=== PATIENT | female | born 1950 | race Caucasian/White ===

== ENCOUNTER 2017-02-26 23:10 | Inpatient (IN) | payer OTHER, MEDICARE ==
[~2017-02-26] VITALS: Ht 160 cm; Wt 112.0 kg
[~2017-02-26 23:10] MED LIST: ACET325 PO; BACT2OIN TOP; CIPR500T2 PO; CLON.1 PO; DOXA1 PO; DUONI INH; Docusate Sod/Senna PO; ENOX40P SQ; FLUC200T63 PO; HYDR-3580 PO; LANTUSP SQ; METR-1 PO; Mineral Oil PO; NIFE1TAB86 PO; NRSS SQ; POLY17S PO; PROM25R PR; PROZ20CA11 PO; RANI150 PO; ZOLP1TAB32 PO
[2017-02-26 23:12] VITALS: BP 210/84; PULSE 84; RESP 16; TEMP 98.3; O2SAT 97
[2017-02-26 23:32] VITALS: BP 207/87
[2017-02-26] MEDS ORDERED: DULO1CAP PO (23:56)
[2017-02-26] MEDS ORDERED: VITACAP7 PO (23:56)
[2017-02-26] MEDS ORDERED: FERR200T PO (23:56)
[2017-02-26] MEDS ORDERED: CHOL1CAP14 PO (23:56)
[2017-02-26] MEDS ORDERED: LISI-515 PO (23:56)
[2017-02-26] MEDS ORDERED: FURO20TA PO (23:56)
[2017-02-26] MEDS ORDERED: ATOR40TA16 PO (23:56)
[2017-02-26] MEDS ORDERED: MECL-62 PO (23:56)
[2017-02-26] MEDS ORDERED: SODI650T PO (23:56)
[2017-02-26] MEDS ORDERED: NOVOLOGP2 SQ (23:56)
[2017-02-27] VITALS (15 sets, daily range): BP systolic 127–188; BP diastolic 61–80; PULSE 66–80; RESP 13–25; TEMP 97.8–98.1; O2SAT 94–100
[2017-02-27] MEDS ORDERED: ALPRAZolam 0.25 MG TAB PO PRN (00:30)
[2017-02-27] MEDS ORDERED: TEMAZEPAM 15 MG CAP PO PRN (00:30)
[2017-02-27] MEDS ORDERED: ACETAMINOPHEN/HYDROcodone 325 MG/7.5 MG TAB PO PRN (00:30)
[2017-02-27] MEDS ORDERED: MORPHINE SULFATE 4 MG/ML INJ IV PRN (00:30)
[2017-02-27] MEDS ORDERED: ONDANSETRON HCL 4 MG/2 ML VIAL IV PRN (00:30)
[2017-02-27] MEDS ORDERED: SODIUM CHLORIDE 0.9% FLUSH 10 ML FLUSH IVF PRN (00:30)
[2017-02-27] MEDS ORDERED: NITROGLYCERIN 0.4 MG SL 25 TABS/BTL SL PRN (00:30)
[2017-02-27] MEDS ORDERED: LORazepam 2 MG/ML VIAL IV PUSH ONE (00:30)
[2017-02-27] MEDS ORDERED: ONDANSETRON HCL 4 MG/2 ML VIAL IVP ONE (00:30)
--- NOTE | 2017-02-27 00:51 | RADRPT ---
EXAM DATE/TIME: 02/27/2017 00:44 [facility] COMPARISON: CT BRAIN W/O CONTRAST, April 25, 2014, 19:30. INDICATIONS : Dizziness. RADIATION DOSE: 40.38 CTDIvol (mGy) MEDICAL HISTORY : Cardiovascular disease. Hypertension. Diabetes mellitus type 2.CVA. SURGICAL HISTORY : Appendectomy. ENCOUNTER: Initial ACUITY: 1 day PAIN SCALE: 0/10 LOCATION: cranial TECHNIQUE: Multiple contiguous axial images were obtained of the head. Using automated exposure control and adj ustment of the mA and/or kV according to patient size, radiation dose was kept as low as reasonably a chievable to obtain optimal diagnostic quality images. FINDINGS: There is old encephalomalacia of the left occipital lobe and no change, however there are 2 smal l areas of hemorrhage within the head of the caudate on the left side the larger one measures almost 7 mm in size not present previously. There is no mass effect. The rest of the examination has not sig nificantly changed. CONCLUSION: Two small areas of hemorrhage within the left head of the caudate not present previously without any significant mass effect. Ru Carpenter MD on February 27, 2017 at 0:47 Board Certified Radiologist. This report was verified electronically.
[2017-02-27 01:20] LABS: AUTOMATED NEUTROPHIL # 5.2 TH/MM3 (1.8-7.7); BASOPHIL # 0.1 TH/MM3 (0-0.2); BASOPHIL % 1.1 % (0.0-2.0); EOSINOPHIL # 0.1 TH/MM3 (0-0.4); EOSINOPHIL % 1.1 % (0.0-4.0); HEMATOCRIT 32.6 % (35.0-46.0); HEMO FLAGS DIFF FINAL; LYMPHOCYTE # 2.2 TH/MM3 (1.0-4.8); MEAN CELL VOLUME 91.9 FL (80.0-100.0); MEAN CORPUSCULAR HEMOGLOBIN 30.3 PG (27.0-34.0); NEUT % 62.8 % (16.0-70.0); PLATELET COUNT 182 TH/MM3 (150-450); RED BLOOD COUNT 3.54 MIL/MM3 (4.00-5.30); RED CELL DISTRIBUTION WIDTH 12.9 % (11.6-17.2); WHITE BLOOD COUNT 8.2 TH/MM3 (4.0-11.0)
[2017-02-27 01:32] LABS: BICARBONATE 24.3 MEQ/L (21.0-32.0); MAGNESIUM 1.7 MG/DL (1.5-2.5); POTASSIUM 4.5 MEQ/L (3.5-5.1)
[2017-02-27 01:34] LABS: BACTERIA, URINE RARE /hpf; BLOOD, URINE TRACE (NEG); GLUCOSE,URINE TRACE mg/dL (NEG); HYALINE CAST, URINE 1 /lpf (RARE); KETONE, URINE NEG (NEG); MUCUS URINE FEW /lpf (OCC); NITRITE,URINE NEG (NEG); RENAL EPITHELIAL CELLS <1 /hpf; SQUAMOUS EPITHELIAL CELL URINE 2 /hpf (0-5); URINE COLOR YELLOW (YELLW/STRAW)
--- NOTE | 2017-02-27 01:34 | PD ---
HPI Chief Complaint: Dizziness Time Seen by Provider: 00:02 Travel History International Travel<30 days: No Contact w/Intl Traveler<30days: No Traveled to known affect area: No History of Present Illness HPI The patient 66 years old. For about 10 days she has had vertiginous like dizziness. It was first noticed while she was watching TV. It's worse when she rotates her head from side to side. At baseline it is mild however with movement of the head and become severe. She denies vomiting however has had nausea. She was prescribed meclizine which was not very helpful. She denies otalgia and tenderness. She's had no headache. No fever. No neck pain. PFSH Past Medical History Cancer: No Cardiovascular Problems: Yes Cerebrovascular Accident: Yes (RIGHT SIDED WEAKNESS) Diabetes: Yes Patient Takes Glucophage: No Endocrine: Yes Fibromyalgia: Yes Gastrointestinal Disorders: Yes Glaucoma: No Genitourinary: No Hepatitis: No Hiatal Hernia: No Hypertension: Yes Immune Disorder: No Musculoskeletal: Yes (MULTIPLE SCLEROSIS) Neurologic: Yes (NEUROPATHY) Psychiatric: No Reproductive: No Respiratory: No Thyroid Disease: No ?: Not Past Surgical History Appendectomy: Yes Eye Surgery: Yes (CATARACT SURGERY/ LASER SURGERY) Oral Surgery: Yes (TEETH EXTRACTED) Pacemaker: No Other Surgery: Yes Social History Alcohol Use: No Tobacco Use: No Substance Use: No Allergies-Medications (Allergen,Severity, Reaction): Coded Allergies: Bee Sting (Verified Allergy, Severe, SOB, EDEMA, 02/26/17) Glucophage (Verified Allergy, Mild, 02/26/17) MAKES PATIENT SICK TO STOMACH Uncoded Allergies: HONEY (Allergy, Severe, SOB, 12/06/12) Reported Meds & Prescriptions Reported Meds & Active Scripts Active Reported Sodium Bicarbonate 650 Mg Tab 650 Mg PO BIDPC Lisinopril 20 Mg Tab 20 Mg PO DAILY Novolog Inj (Insulin Aspart) 1,000 Unit/10 Ml Vial 40 Units SQ TID Feosol (Ferrous Sulfate) 200 Mg Tab 27 Mg PO DAILY Furosemide 20 Mg Tab 20 Mg PO DAILY Atorvastatin (Atorvastatin Calcium) 40 Mg Tab 40 Mg PO HS Duloxetine DR (Duloxetine HCl) 20 Mg Capdr 20 Mg PO DAILY D3 Maximum Strength (Cholecalciferol) 5,000 Unit Cap 5,000 Units PO DAILY B Complex (B-Complex Vitamins) 1 Cap 1 Cap PO DAILY Meclizine (Meclizine HCl) 25 Mg Tab 25 Mg PO BID PRN Review of Systems Except as stated in HPI: all other systems reviewed are Neg Physical Exam Narrative GENERAL: 66-year-old female pleasant well-nourished well-developed no acute distress SKIN: Focused skin assessment warm/dry. HEAD: Atraumatic. Normocephalic. EYES: Pupils equal and round. No scleral icterus. No injection or drainage. ENT: No nasal bleeding or discharge. Mucous membranes pink and moist. NECK: Trachea midline. No JVD. CARDIOVASCULAR: Regular rate and rhythm. No murmur appreciated. RESPIRATORY: No accessory muscle use. Clear to auscultation. Breath sounds equal bilaterally. GASTROINTESTINAL: Abdomen soft, non-tender, nondistended. Hepatic and splenic margins not palpable. MUSCULOSKELETAL: No obvious deformities. No clubbing. No cyanosis. No edema. NEUROLOGICAL: Awake and alert. No obvious cranial nerve deficits. Motor grossly within normal limits. Normal speech. Cerebellar function normal. PSYCHIATRIC: Appropriate mood and affect; insight and judgment normal. Data Data Last Documented VS Vital Signs Date Time Temp Pulse Resp B/P Pulse Ox O2 Delivery O2 Flow Rate FiO2 02/27/17 02:29 77 18 166/78 99 Room Air 02/26/17 23:12 98.3 Vital signs reviewed Orders Electrocardiogram (02/27/17 00:18) Basic Metabolic Panel (Bmp) (02/27/17 00:18) Complete Blood Count With Diff (02/27/17 00:18) Magnesium (Mg) (02/27/17 00:18) Ua Includes Microscopic (02/27/17 00:18) Ct Brain W/O Iv Contrast(Rout) (02/27/17 00:18) Ecg Monitoring (02/27/17 00:18) Iv Access Insert/Monitor (02/27/17 00:18) Oximetry (02/27/17 00:18) Ondansetron Inj (Zofran Inj) (02/27/17 00:30) Sodium Chloride 0.9% Flush (Ns Flush) (02/27/17 00:30) Lorazepam Inj (Ativan Inj) (02/27/17 00:30) Resp Oxygen Nasal Cannula (02/27/17 ) Electrocardiogram (02/27/17 00:20) Electrocardiogram (02/27/17 03:20) Acetamin-Hydrocod 325-7.5 Mg ([place] 7.5 (02/27/17 00:30) Morphine Inj (Morphine Inj) (02/27/17 00:30) Ondansetron Inj (Zofran Inj) (02/27/17 00:30) Nitroglycerin Sl (Nitrostat Sl) (02/27/17 00:30) Aspirin (Aspirin) (02/27/17 09:00) Temazepam (Restoril) (02/27/17 00:30) Alprazolam (Xanax) (02/27/17 00:30) Prothrombin Time / Inr (Pt) (02/27/17 01:33) Act Partial Throm Time (Ptt) (02/27/17 01:33) Nicardipine Inj (Cardene Inj) (02/27/17 02:15) Admit Order (Ed Use Only) (02/27/17 02:41) Labs Laboratory Tests Test 02/27/17 02/27/17 02/27/17 00:25 01:05 01:36 White Blood Count 8.2 TH/MM3 Red Blood Count 3.54 MIL/MM3 Hemoglobin 10.7 GM/DL Hematocrit 32.6 % Mean Corpuscular Volume 91.9 FL Mean Corpuscular Hemoglobin 30.3 PG Mean Corpuscular Hemoglobin 33.0 % Concent Red Cell Distribution Width 12.9 % Platelet Count 182 TH/MM3 Mean Platelet Volume 9.0 FL Neutrophils (%) (Auto) 62.8 % Lymphocytes (%) (Auto) 27.0 % Monocytes (%) (Auto) 8.0 % Eosinophils (%) (Auto) 1.1 % Basophils (%) (Auto) 1.1 % Neutrophils # (Auto) 5.2 TH/MM3 Lymphocytes # (Auto) 2.2 TH/MM3 Monocytes # (Auto) 0.7 TH/MM3 Eosinophils # (Auto) 0.1 TH/MM3 Basophils # (Auto) 0.1 TH/MM3 CBC Comment DIFF FINAL Differential Comment Sodium Level 145 MEQ/L Potassium Level 4.5 MEQ/L Chloride Level 111 MEQ/L Carbon Dioxide Level 24.3 MEQ/L Anion Gap 10 MEQ/L Blood Urea Nitrogen 49 MG/DL Creatinine 3.02 MG/DL Estimat Glomerular Filtration 16 ML/MIN Rate Random Glucose 68 MG/DL Calcium Level 8.8 MG/DL Magnesium Level 1.7 MG/DL Urine Color YELLOW Urine Turbidity CLEAR Urine pH 6.0 Urine Specific [place] 1.011 Urine Protein 300 mg/dL Urine Glucose (UA) TRACE mg/dL Urine Ketones NEG mg/dL Urine Occult Blood TRACE Urine Nitrite NEG Urine Bilirubin NEG Urine Urobilinogen LESS THAN 2.0 MG/DL Urine Leukocyte Esterase TRACE Urine RBC 2 /hpf Urine WBC 9 /hpf Urine Squamous Epithelial 2 /hpf Cells Urine Renal Epithelial Cells <1 /hpf Urine Bacteria RARE /hpf Urine Hyaline Casts 1 /lpf Urine Mucus FEW /lpf Microscopic Urinalysis Comment Prothrombin Time 10.2 SEC Prothromb Time International 0.9 RATIO Ratio Activated Partial 27.5 SEC Thromboplast Time MDM Medical Decision Making Medical Screen Exam Complete: Yes Emergency Medical Condition: Yes Medical Record Reviewed: Yes Differential Diagnosis Central vertigo, peripheral vertigo, intracranial bleed, stroke, electrolyte imbalance Narrative Course CBC & BMP Diagram 02/27/17 00:25 Urinalysis could reflect a UTI EKG reveals a sinus rhythm at a rate of [address] elevation or depression Last [address] 02/27/17 0018 Signed Impressions: Service Date/Time: Monday, February 27, 2017 00:44 - CONCLUSION: Two small areas of hemorrhage within the left head of the caudate not present previously without any significant mass effect. Ru Carpenter MD As noted the patient has no appreciable neurologic deficit. She'll be admitted for blood pressure control with the goal of 120 to 150 systolic/diastolic - case discussed with Dr. Mckeon of neurosurgery. Case d/w Dr Judge. Cardene gtt started. Pt reports resolution of symptoms after ativan. Diagnosis Primary Impression: ICH (intracerebral hemorrhage) Qualified Code: I61.9 - Left-sided nontraumatic intracerebral hemorrhage, unspecified cerebral location Additional Impression: Dizziness Admitting Information Admitting Physician Requests: Admit Kemar Head MD Feb 27, 2017 01:34
[2017-02-27 02:20] LABS: APTT (PATIENT) 27.5 SEC (24.3-30.1); INTERNATIONAL NORMALIZED RATIO 0.9 RATIO; PROTHROMBIN TIME - PATIENT 10.2 SEC (9.8-11.6)
--- NOTE | 2017-02-27 02:32 | PD.CONS ---
History of Present Illness Service Neurosurgery Consult Requested By Dr Head Reason for Consult Basal ganglia ICH Primary Care Physician Unknown Diagnoses: History of Present Illness 66-year-old female states that approximately 10 days ago she developed dizziness, primarily with movement of her head, without definite vertigo. She denies any headaches, fevers, nausea, vomiting. No blurred vision or diplopia. No pain weakness or numbness in the extremities. She has had some increased difficulty ambulating, but usually feels a little off balance. No complaint of neck or low back pain. No skin lesions or rash. Her daughter finally brought her to the emergency room today on 02/27/[address] scan of the head has revealed a small area of hemorrhage in the left basal ganglia. Review of her emergency room reports indicates a systolic blood pressure of 210 upon arrival in the emergency room. Review of Systems Constitutional: DENIES: Fatigue, Fever Eyes: DENIES: Blurred vision, Diplopia Ears, nose, mouth, throat: DENIES: Tinnitus, Hearing loss, Vertigo, Ear Pain Respiratory: DENIES: Cough, Sputum production Cardiovascular: DENIES: Chest pain, Palpitations, Lower Extremity Edema Gastrointestinal: DENIES: Abdominal pain, Nausea, Vomiting Genitourinary: DENIES: Urinary frequency Musculoskeletal: DENIES: Joint pain, Muscle aches, Back pain, Neck pain Integumentary: DENIES: Rash Hematologic/lymphatic: DENIES: Bruising Neurologic: COMPLAINS OF: Abnormal gait, Poor Balance, DENIES: Headache, Localized weakness, Paresthesias, Speech Problems Psychiatric: DENIES: Anxiety, Confusion Past Family Social History Allergies: Coded Allergies: Bee Sting (Verified Allergy, Severe, SOB, EDEMA, 02/26/17) Glucophage (Verified Allergy, Mild, 02/26/17) MAKES PATIENT SICK TO STOMACH Uncoded Allergies: HONEY (Allergy, Severe, SOB, 12/06/12) Past Medical History Diabetes Hypertension Stage IV chronic kidney disease History of CVA Past Surgical History Appendectomy Reported Medications Reported Meds & Active Scripts Active Reported Sodium Bicarbonate 650 Mg Tab 650 Mg PO BIDPC Lisinopril 20 Mg Tab 20 Mg PO DAILY Novolog Inj (Insulin Aspart) 1,000 Unit/10 Ml Vial 40 Units SQ TID Feosol (Ferrous Sulfate) 200 Mg Tab 27 Mg PO DAILY Furosemide 20 Mg Tab 20 Mg PO DAILY Atorvastatin (Atorvastatin Calcium) 40 Mg Tab 40 Mg PO HS Duloxetine DR (Duloxetine HCl) 20 Mg Capdr 20 Mg PO DAILY D3 Maximum Strength (Cholecalciferol) 5,000 Unit Cap 5,000 Units PO DAILY B Complex (B-Complex Vitamins) 1 Cap 1 Cap PO DAILY Meclizine (Meclizine HCl) 25 Mg Tab 25 Mg PO BID PRN Family History Positive for diabetes in her mother Social History Has not smoked cigarettes for approximately 30 years. No significant alcohol use. Lives alone Physical Exam Vital Signs Vital Signs Date Time Temp Pulse Resp B/P Pulse Ox O2 Delivery O2 Flow Rate FiO2 02/27/17 01:50 76 18 169/69 96 Room Air 02/27/17 01:27 79 18 188/78 96 Room Air 02/27/17 00:33 94 02/26/17 23:32 207/87 02/26/17 23:12 98.3 84 16 210/84 97 Room Air Physical Exam General: Pleasant moderately obese lady in no apparent distress Respirations: Clear to auscultation Cardiac: Regular without murmur HEENT: No facial edema or ecchymosis. Oropharynx clear. Sclerae are clear and nonicteric Neck: No nuchal rigidity. Nontender. Normal range of motion Skin: No skin lesions or rash Extremities: Mild distal lower extremity edema without cyanosis. Posterior tibial pulses 2+ bilateral. No long bone or joint deformity or pain with joint range of motion in the upper and lower extremities Neurologic: Awake and alert Oriented X 3 Speech is clear Conversant and appropriate Follow simple commands well Answers questions appropriately Reasonable judgment and insight Recent and remote memory are intact No evidence of anxiety or depression Pupils are equal and reactive to accommodation. Extra-ocular movements, visual bueno to confrontation, facial sensorimotor, tongue, palate, sternocleidomastoid testing, hearing to finger rub testing, and bilateral shoulder shrug are all intact. Sensation is intact to light touch in all extremities Strength normal major flexion and extension groups all extremities Khari's absent bilaterally No ankle clonus Plantar responses absent bilateral Fine motor movements intact upper extremities Laboratory Laboratory Tests Test 02/27/17 02/27/17 00:25 01:05 White Blood Count 8.2 Red Blood Count 3.54 Hemoglobin 10.7 Hematocrit 32.6 Mean Corpuscular Volume 91.9 Mean Corpuscular Hemoglobin 30.3 Mean Corpuscular Hemoglobin 33.0 Concent Red Cell Distribution Width 12.9 Platelet Count 182 Mean Platelet Volume 9.0 Neutrophils (%) (Auto) 62.8 Lymphocytes (%) (Auto) 27.0 Monocytes (%) (Auto) 8.0 Eosinophils (%) (Auto) 1.1 Basophils (%) (Auto) 1.1 Neutrophils # (Auto) 5.2 Lymphocytes # (Auto) 2.2 Monocytes # (Auto) 0.7 Eosinophils # (Auto) 0.1 Basophils # (Auto) 0.1 CBC Comment DIFF FINAL Differential Comment Sodium Level 145 Potassium Level 4.5 Chloride Level 111 Carbon Dioxide Level 24.3 Anion Gap 10 Blood Urea Nitrogen 49 Creatinine 3.02 Estimat Glomerular Filtration 16 Rate Random Glucose 68 Calcium Level 8.8 Magnesium Level 1.7 Urine Color YELLOW Urine Turbidity CLEAR Urine pH 6.0 Urine Specific [place] 1.011 Urine Protein 300 Urine Glucose (UA) TRACE Urine Ketones NEG Urine Occult Blood TRACE Urine Nitrite NEG Urine Bilirubin NEG Urine Urobilinogen LESS THAN 2.0 Urine Leukocyte Esterase TRACE Urine RBC 2 Urine WBC 9 Urine Squamous Epithelial 2 Cells Urine Renal Epithelial Cells <1 Urine Bacteria RARE Urine Hyaline Casts 1 Urine Mucus FEW Microscopic Urinalysis Comment Result Diagram: 02/27/17 0025 02/27/17 0025 Imaging DT Head images reviewed by the undersigned. Head CT 02/27/17 0018 Signed Impressions: Service Date/Time: Monday, February 27, 2017 00:44 - CONCLUSION: Two small areas of hemorrhage within the left head of the caudate not present previously without any significant mass effect. Ru Carpenter MD Assessment and Plan Assessment and Plan Impression: 1. Two small probable subacute left caudate ICH. 2.htN Plan: No NS intervention anticipated at this time HTN control for SBP 120 - 150 range. Cardene drip initiated in the ED FU CT Head in approximately 48 Hr and adjust BP parameters None chemical DVT prophylaxis May mobilize out of bed and advance diet as tolerated Delvis Mckeon MD Feb 27, 2017 02:32
[2017-02-27] MEDS: niCARdipine INJ 25 MG in SODIUM CHLOR 0.9% 250 ML INJ 250 ML IV SCH ×6 (03:12→21:05)
[2017-02-27] MEDS ORDERED: SODIUM CHLORIDE 0.9% FLUSH 10 ML FLUSH IV FLUSH PRN (03:15)
[2017-02-27] MEDS ORDERED: GLUCAGON 1 MG/ML VIAL OTHER PRN (03:15)
[2017-02-27] MEDS ORDERED: NALOXONE HCL 0.4 MG/ML AMP IV PRN (03:15)
[2017-02-27] MEDS ORDERED: DEXTROSE 50% IN WATER 50 ML VIAL(D50) IV PRN (03:15)
[2017-02-27] MEDS ORDERED: cefTRIAXone INJ 1,000 MG in SODIUM CHLORIDE 0.9% INJ 100 ML IV ONE (03:30)
[2017-02-27] MEDS ORDERED: CHLORHEXIDINE GLUCONATE 2 % 1 PACK (2 CLOTHS)(extra cloths) TOPICAL PRN (04:30)
--- NOTE | 2017-02-27 05:04 | HHI.HP ---
HPI Service [facility] Primary Care Physician Unknown Admission Diagnosis ICH, Vertigo Diagnoses: Travel History International Travel<30 Days: No Contact w/Intl Traveler <30 Da: No Traveled to Known Affected Are: No History of Present Illness History from patient, ER provider communication, and review of medical records. Patient reported that she was having some dizziness for the past 1-1/2 weeks. She states the dizziness is worse whenever she moves her head. She went to her PCP and was given meclizine for this and was not improving. Therefore her daughter decided to bring her to hospital. Patient states she was also losing her balance together with this dizziness. However she states that she usually has loss of balance at baseline and she does not think this is getting worse. She denies any new visual disturbance. She states she does have some visual problems at baseline as well. Denies any ringing in her ears. Denies pain in her years. Denies fever. Denies any new numbness or tingling or weakness elsewhere. 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 Denies being on blood thinners at home. Denies any falls or syncopal episodes. Patient reports that her normal blood pressure at home is around 150s to 170s to 180s systolic. However her diastolic is always around 76 or so. She denies any new changes in her blood pressure medications. In the emergency room, patient's further workup revealed possible caudate tiny hemorrhage. Her blood pressures in the ER was as high as 210/84. Apart from the above, patient denies any nausea/vomiting/diarrhea/urinary burning or pain on urination. Denies any hematemesis/hematochezia/melena/hematuria. Denies any chest pain/palpitations/shortness of breath Review of Systems Except as stated in HPI: all other systems reviewed are Neg Past Family Social History Past Medical History Hypertension Diabetes CK D stage IV History of CVAwith residual right sided weakness Obesity Past Surgical History Appendectomy Eye surgery Reported Medications Patient's medications listed on EMRreviewed. Patient states this was reviewed with her. Allergies: Coded Allergies: Bee Sting (Verified Allergy, Severe, SOB, EDEMA, 02/26/17) Glucophage (Verified Allergy, Mild, 02/26/17) MAKES PATIENT SICK TO STOMACH Uncoded Allergies: HONEY (Allergy, Severe, SOB, 12/06/12) Family History mother- dm Social History no smoking now- quit 30yrs ago; used to smoke only for about 5yrs, not heavy smoker no drinking - only socially lives on her own, no longer driving, daughter lives close by Physical Exam Vital Signs Vital Signs Date Time Temp Pulse Resp B/P Pulse Ox O2 Delivery O2 Flow Rate FiO2 02/27/17 04:00 98.1 77 25 128/80 98 02/27/17 03:25 75 18 154/67 96 Room Air 02/27/17 02:29 77 18 166/78 99 Room Air 02/27/17 01:50 76 18 169/69 96 Room Air 02/27/17 01:27 79 18 188/78 96 Room Air 02/27/17 00:33 94 02/26/17 23:32 207/87 02/26/17 23:12 98.3 84 16 210/84 97 Room Air Physical Exam GENERAL: This is a well-nourished, well-developed patient, in no apparent distress. SKIN: No rashes, ecchymoses or lesions. Cool and dry. HEAD: Atraumatic. Normocephalic. No temporal or scalp tenderness. EYES: No scleral icterus. No injection or drainage. ENT: Nose without bleeding, purulent drainage or septal hematoma. Airway patent. NECK: Trachea midline. No JVDSupple, nontender, no meningeal signs. CARDIOVASCULAR: Regular rate and rhythm without murmurs, gallops, or rubs. RESPIRATORY: Clear to auscultation. Breath sounds equal bilaterally. No wheezes , rales, or rhonchi. GASTROINTESTINAL: Abdomen soft, non-tender, nondistended. No guarding. MUSCULOSKELETAL: Extremities without clubbing, cyanosis, or edema No calf tenderness. NEUROLOGICAL: Awake and alert.Motor and sensory grossly within normal limits Normal speech. Mild right-sided weakness about 4 out of 5 Laboratory Laboratory Tests Test 02/27/17 02/27/17 02/27/17 00:25 01:05 01:36 White Blood Count 8.2 Red Blood Count 3.54 Hemoglobin 10.7 Hematocrit 32.6 Mean Corpuscular Volume 91.9 Mean Corpuscular Hemoglobin 30.3 Mean Corpuscular Hemoglobin 33.0 Concent Red Cell Distribution Width 12.9 Platelet Count 182 Mean Platelet Volume 9.0 Neutrophils (%) (Auto) 62.8 Lymphocytes (%) (Auto) 27.0 Monocytes (%) (Auto) 8.0 Eosinophils (%) (Auto) 1.1 Basophils (%) (Auto) 1.1 Neutrophils # (Auto) 5.2 Lymphocytes # (Auto) 2.2 Monocytes # (Auto) 0.7 Eosinophils # (Auto) 0.1 Basophils # (Auto) 0.1 CBC Comment DIFF FINAL Differential Comment Sodium Level 145 Potassium Level 4.5 Chloride Level 111 Carbon Dioxide Level 24.3 Anion Gap 10 Blood Urea Nitrogen 49 Creatinine 3.02 Estimat Glomerular Filtration 16 Rate Random Glucose 68 Calcium Level 8.8 Magnesium Level 1.7 Urine Color YELLOW Urine Turbidity CLEAR Urine pH 6.0 Urine Specific [place] 1.011 Urine Protein 300 Urine Glucose (UA) TRACE Urine Ketones NEG Urine Occult Blood TRACE Urine Nitrite NEG Urine Bilirubin NEG Urine Urobilinogen LESS THAN 2.0 Urine Leukocyte Esterase TRACE Urine RBC 2 Urine WBC 9 Urine Squamous Epithelial 2 Cells Urine Renal Epithelial Cells <1 Urine Bacteria RARE Urine Hyaline Casts 1 Urine Mucus FEW Microscopic Urinalysis Comment Prothrombin Time 10.2 Prothromb Time International 0.9 Ratio Activated Partial 27.5 Thromboplast Time Result Diagram: 02/27/17 0025 02/27/17 0025 Imaging Last [address] 02/27/17 0018 Signed Impressions: Service Date/Time: Monday, February 27, 2017 00:44 - CONCLUSION: Two small areas of hemorrhage within the left head of the caudate not present previously without any significant mass effect. Ru Carpenter MD Assessment and Plan Assessment and Plan Impression: Hypertensive emergency Dizzinesslikely secondary to hypertensive emergency and intracranial bleeding. Patient reports that this has resolved since she arrived to the ER and received medications. Bilateral caudate tiny hemorrhage Plan: Admit patient to ICU. Patient was started on Cardene drip in ER. Will monitor BP closely. Neurosurgery evaluation appreciated. BP control. We'll check an echocardiogram and carotid sono. Resume home meds. DVT prophylaxiswith SCD. Discussed Condition With Patient, ER physician, nursing staff Physician Certification 2 Midnight Certification Type: Admission for Inpatient Services Order for Inpatient Services The services are ordered in accordance with Medicare regulations or non- Medicare payer requirements, as applicable. In the case of services not specified as inpatient-only, they are appropriately provided as inpatient services in accordance with the 2-midnight benchmark. Estimated LOS (days): 2 days is the estimated time the patient will need to remain in the hospital, assuming treatment plan goals are met and no additional complications. Post-Hospital Plan: Home Daisha Judge MD Feb 27, 2017 05:04
[2017-02-27] MEDS: INSULIN ASPART SUPPLEMENTAL SCALE SQ SCH ×4 (06:34→21:30)
--- NOTE | 2017-02-27 07:52 | EKG ---
Date Performed: 02/27/2017 Time Performed: 00:37:14 PTAGE: 66 years EKG: Sinus rhythm VOLTAGE CRITERIA FOR LVH INFERIOR MYOCARDIAL INFARCTION ABNORMAL ECG NO PREVIOUS TRACING DOCTOR: Walt Anand Interpretating Date/Time 02/27/2017 07:52:33
[2017-02-27] MEDS: SODIUM CHLORIDE 0.9% FLUSH 10 ML FLUSH IV FLUSH SCH ×2 (08:31→21:00)
[2017-02-27] MEDS ORDERED: ASPIRIN 325 MG TAB PO SCH (09:00)
--- NOTE | 2017-02-27 10:35 | RADRPT ---
EXAM DATE/TIME: 02/27/2017 08:33 Caution: Report not yet finalized and possibly incomplete! [facility] COMPARISON: No previous studies available for comparison. INDICATIONS : <<Syncope. >> MEDICAL HISTORY : Hypercholesterolemia. Hypertension. <<Reading glasses. Dentures on top. Neuropathy. Right side weak ness. Gastrointestinal orders. Heartburn. Renal disease. Fibromyalgia. Diabetes. Depression. [place] phobia. >> SURGICAL HISTORY : Appendectomy. <<Cataract surgery. Teeth Extracted. >> ENCOUNTER: Initial ACUITY: 2 days PAIN SCORE: 2/10 LOCATION: Bilateral neck PEAK SYSTOLIC VELOCITIES (cm/sec): ICA/CCA RATIO: Right:<<1.3>> Left:<<1.3>> ICA: Right:<<117>> Left:<<131>> CCA: Right:<<88>> Left:<<98>> ECA: Right:<<107>> Left:<<111>> VERTEBRAL: Right:<<66>> antegrade Left:<<69>> antegrade Elevated flow velocities and ICA/CCA ratios have been found to correlate with increased degrees of vessel stenosis, calculated as percentage of diameter relative to a normal segment of distal ICA/CCA FINDINGS: Mild heterogeneous plaque with some calcification is identified in both carotid bifurcations slightly more on the left. RIGHT CAROTID: No significant stenosis is visualized. The waveforms are within normal limits. LEFT CAROTID: No significant stenosis is visualized. The waveforms are within normal limits. VERTEBRAL ARTERIES: Antegrade flow is seen in both vertebral arteries. MISCELLANEOUS: None. CONCLUSION: Mild bilateral carotid plaques. No evidence of hemodynamically significant stenosis. Antegrade flow in both vertebral arteries. Fernando Bell MD on February 27, 2017 at 10:28
--- NOTE | 2017-02-27 11:09 | HHI.PR ---
Addendum to Inpatient Note Addendum Reason: Additional Documentation Additional Information The pt was resting comfortably. She said her dizziness went away after the Ativan. Blood pressure well controlled on nicardipine gtt. Added amlodipine 5 mg daily. Will likely resume lisinopril 20 mg daily if Cardene gtt weaned off and blood pressure still elevated. Add PT/ OT. Giacomo Emerson DO Feb 27, 2017 11:09
[2017-02-27] MEDS: amLODIPine BESYLATE 5 MG TAB PO SCH (12:17)
--- NOTE | 2017-02-27 16:59 | ECHRPT ---
Indication: Dizziness and giddiness CONCLUSIONS Normal left ventricular size. Moderate concentric left ventricular hypertrophy. The left ventricular systolic function is normal with an estimated ejection fraction in the range of 55-60%. No regional wall motion abnormalities are present. The left atrial size is mildly dilated. The left atrial pressure appears to be normal. Diffuse calcification of the aortic valve. The pulmonary valve is not well visualized. BP: 188 / 78 HR: 79 Rhythm: Sinus MEASUREMENTS (Male / Female) Normal Values Technical Quality:Poor 2D ECHO LV Diastolic Diameter PLAX 4.6 cm 4.2 - 5.9 / 3.9 - 5.3 cm LV Systolic Diameter PLAX 3.2 cm IVS Diastolic Thickness 1.6 cm 0.6 - 1.0 / 0.6 - 0.9 cm LVPW Diastolic Thickness 1.6 cm 0.6 - 1.0 / 0.6 - 0.9 cm LV Relative Wall Thickness 0.7 RV Internal Dim ED PLAX 2.2 cm LVOT Diameter 1.9 cm LA Systolic Diameter LX 4.3 cm 3.0 - 4.0 / 2.7 - 3.8 cm M-MODE Aortic Root Diameter MM 3.1 cm LA Systolic Diameter MM 3.8 cm LA Ao Ratio MM 1.2 AV Cusp Separation MM 1.8 cm DOPPLER AV Peak Velocity 194.0 cm/s AV Peak Gradient 15.1 mmHg LVOT Peak Velocity 112.0 cm/s LVOT Peak Gradient 5.0 mmHg AV Area Cont Eq pk 1.6 cm MV Area PHT 3.0 cm Mitral E Point Velocity 96.3 cm/s Mitral A Point Velocity 124.0 cm/s Mitral E to A Ratio 0.8 LV E' Lateral Velocity 7.0 cm/s Mitral E to LV E' Lateral Ratio 13.7 LV E' Septal Velocity 5.9 cm/s Mitral E to LV E' Septal Ratio 16.2 TV Peak Velocity 145.0 cm/s PV Peak Velocity 113.0 cm/s PV Peak Gradient 5.1 mmHg FINDINGS LEFT VENTRICLE Normal left ventricular size. Moderate concentric left ventricular hypertrophy. The left ventricular systolic function is normal with an estimated ejection fraction in the range of 55-60%. No regional wall motion abnormalities are present. RIGHT VENTRICLE Normal right ventricular size and systolic function. LEFT ATRIUM The left atrial size is mildly dilated. The left atrial pressure appears to be normal. RIGHT ATRIUM The right atrial size is normal. ATRIAL SEPTUM Normal atrial septal thickness without atrial level shunting by limited color doppler interrogation. AORTA The aortic root and proximal ascending aorta are normal in size on limited imaging. MITRAL VALVE Structurally normal mitral valve. No mitral valve stenosis or regurgitation. AORTIC VALVE Trileaflet aortic valve. No aortic valve stenosis or regurgitation. Diffuse calcification of the aortic valve. TRICUSPID VALVE Structurally normal tricuspid valve. No tricuspid valve stenosis or regurgitation. PULMONARY VALVE The pulmonary valve is not well visualized. VESSELS The inferior vena cava is normal in size. PERICARDIUM No pericardial effusion. Renetta Lange MD, FACC (Electronically Signed) Final Date:27 February 2017 16:58
[2017-02-27] MEDS: SODIUM BICARBONATE 650 MG TAB PO SCH (17:31)
[2017-02-28] VITALS (12 sets, daily range): BP systolic 116–162; BP diastolic 54–70; PULSE 65–91; RESP 12–20; TEMP 97.7–98.3; O2SAT 95–99
[2017-02-28] MEDS: CHLORHEXIDINE GLUCONATE 2 % 1 PACK (2 CLOTHS)(taper/protocol) TOPICAL SCH (01:53)
--- NOTE | 2017-02-28 04:21 | RADRPT ---
EXAM DATE/TIME: 02/28/2017 04:15 [facility] COMPARISON: CT BRAIN W/O CONTRAST, February 27, 2017, 0:44. INDICATIONS : Follow up hemorrhage. RADIATION DOSE: 42.90 CTDIvol (mGy) MEDICAL HISTORY : Cardiovascular disease. Hypertension. Diabetes mellitus type 2. SURGICAL HISTORY : Appendectomy. ENCOUNTER: Subsequent ACUITY: 1 day PAIN SCALE: 2/10 LOCATION: cranial TECHNIQUE: Multiple contiguous axial images were obtained of the head. Using automated exposure control and adj ustment of the mA and/or kV according to patient size, radiation dose was kept as low as reasonably a chievable to obtain optimal diagnostic quality images. FINDINGS: There is no change in 2 small areas of hemorrhage within the head of the caudate on the left charan e. The rest of the examination has not significantly changed.CONCLUSION: Stable hemorrhages within the head of the caudate on the left side. Ru Carpenter MD on February 28, 2017 at 4:19 Board Certified Radiologist. This report was verified electronically.
[2017-02-28] MEDS: INSULIN ASPART SUPPLEMENTAL SCALE SQ SCH ×3 (07:00→20:00)
[2017-02-28] MEDS: SODIUM BICARBONATE 650 MG TAB PO SCH ×2 (08:23→17:15)
[2017-02-28] MEDS: DULoxetine HCl DR 20 MG CAP PO SCH (08:23)
[2017-02-28] MEDS: FERROUS SULFATE 300 MG /5ML UDC PO SCH (08:23)
[2017-02-28] MEDS: CHOLECALCIFEROL (VIT D3) 5000 UNIT CAP PO SCH (08:23)
[2017-02-28] MEDS: amLODIPine BESYLATE 5 MG TAB PO SCH (08:23)
[2017-02-28] MEDS: VITAMIN B COMPLEX/VIT C TAB PO SCH (08:48)
[2017-02-28] MEDS: SODIUM CHLORIDE 0.9% FLUSH 10 ML FLUSH IV FLUSH SCH ×2 (08:49→20:00)
[2017-02-28] MEDS ORDERED: PNEUMOCOCCAL POLYVALENT INJ 25 MCG/0.5 ML SYR IM ONE (09:00)
[2017-02-28] MEDS ORDERED: amLODIPine BESYLATE 5 MG TAB PO ONE (11:00)
--- NOTE | 2017-02-28 11:40 | HHI.PR ---
Subjective Remarks The pt was ambulating without difficulty. She did endorse some shortness of breath with exertion. No longer has dizziness. Discussed with nurse at the bedside. Objective Vitals Vital Signs Date Time Temp Pulse Resp B/P Pulse Ox O2 Delivery O2 Flow Rate FiO2 02/28/17 10:00 71 02/28/17 08:00 98.3 73 17 152/67 98 02/28/17 08:00 73 02/28/17 06:00 65 02/28/17 04:00 98.2 68 12 116/54 99 02/28/17 04:00 68 02/28/17 02:00 76 02/28/17 01:28 99 21 02/28/17 00:00 67 02/28/17 00:00 97.7 67 14 139/60 96 02/27/17 22:00 71 02/27/17 20:00 76 02/27/17 20:00 98.1 76 24 152/68 100 02/27/17 18:00 78 02/27/17 16:00 70 02/27/17 16:00 97.9 70 25 141/64 100 02/27/17 14:00 72 02/27/17 12:00 98.0 68 15 140/61 100 02/27/17 12:00 80 I/O 02/27/17 02/27/17 02/27/17 02/28/17 02/28/17 02/28/17 07:00 15:00 23:00 07:00 15:00 23:00 Intake Total 297 ml 1006 ml 1099 ml 291 ml Output Total 350 ml 325 ml Balance 297 ml 656 ml 774 ml 291 ml Intake Oral 100 ml 420 ml 480 ml 240 ml IV Total 197 ml 586 ml 619 ml 51 ml Output Urine Total 350 ml 325 ml # Voids 0 1 1 # Bowel Movements 0 0 0 0 Result Diagram: 02/27/17 0025 02/27/17 0025 Imaging Last Impressions Head CT 02/28/17 0600 Signed Impressions: Service Date/Time: Tuesday, February 28, 2017 04:15 - CONCLUSION: Stable hemorrhages within the head of the caudate on the left side. Ru Carpenter MD Carotid Artery Ultrasound 02/27/17 0000 Signed Impressions: Service Date/Time: Bernadette, February 27, 2017 08:33 - CONCLUSION: Mild bilateral carotid plaques. No evidence of hemodynamically significant stenosis. Antegrade flow in both vertebral arteries. Fernando Bell MD Objective Remarks GENERAL: This is a well-nourished, well-developed patient, in no apparent distress. SKIN: No rashes, ecchymoses or lesions. Cool and dry. HEAD: Atraumatic. Normocephalic. No temporal or scalp tenderness. EYES: No scleral icterus. No injection or drainage. ENT: Nose without bleeding, purulent drainage or septal hematoma. Airway patent. NECK: Trachea midline. No JVDSupple, nontender, no meningeal signs. CARDIOVASCULAR: Regular rate and rhythm without murmurs, gallops, or rubs. RESPIRATORY: Clear to auscultation. Breath sounds equal bilaterally. No wheezes , rales, or rhonchi. GASTROINTESTINAL: Abdomen soft, non-tender, nondistended. No guarding. MUSCULOSKELETAL: Extremities without clubbing, cyanosis, or edema. NEUROLOGICAL: Awake and alert.Motor and sensory grossly within normal limits Normal speech. Mild right-sided weakness about 4 out of 5. PSYCH: Mood and affect appropriate. Medications and IVs Current Medications Medications (Trade) Dose Ordered Sig/Flora Route Start Time Stop Time Status Last Admin (Cardene Inj/NS 250 ml Inj) 260 ml @ 0 mls/hr TITRATE IV 02/27/17 02:15 02/27/17 21:05 (NS Flush) 2 ml UNSCH PRN IV FLUSH 02/27/17 03:15 (NS Flush) 2 ml BID IV FLUSH 02/27/17 09:00 02/28/17 08:49 (Narcan Inj) 0.4 mg UNSCH PRN IV 02/27/17 03:15 (D50w (Vial) Inj) 50 ml UNSCH PRN IV 02/27/17 03:15 (Glucagon Inj) 1 mg UNSCH PRN OTHER 02/27/17 03:15 Miscellaneous Information Patient in critical care unit? Ass... [id number] .XX 02/27/17 04:30 02/27/17 21:03 (Chlorhexidine 2% Cloth) 3 pack DAILY@04 TOPICAL 02/28/17 04:00 03/04/17 04:01 02/28/17 01:53 (Chlorhexidine 2% Cloth) 3 pack UNSCH PRN TOPICAL 02/27/17 04:30 03/04/17 04:28 (Vitamin D3) 5,000 units DAILY PO 02/28/17 09:00 02/28/17 08:23 (Bill Albarado) 20 mg DAILY PO 02/28/17 09:00 02/28/17 08:23 (Ferrous Sulfate Liq) 150 mg DAILY PO 02/28/17 09:00 02/28/17 08:23 (Allbee C) 1 tab DAILY PO 02/28/17 09:00 02/28/17 08:48 (Sodium Bicarbonate) 650 mg BIDPC PO 02/27/17 18:00 02/28/17 08:23 (Norvasc) 10 mg DAILY PO 03/01/17 09:00 A/P Assessment and Plan Bilateral caudate hemorrhages/ Hypertensive emergency The pt presented with severe dizziness. She was found to have bilateral caudate hemorrhages on CT scan, likely s/t hypertensive emergency. Neurosurgery consult appreciated. No surgical indication at this time. Repeat CT 02/28 with stability. Echo and carotid US unremarkable. - continue blood pressure control. Increase amlodipine to 10 mg daily. Cardene gtt as needed to keep blood pressure below 150. - PT/ OT. - follow up with neurosurgery. CKD Stage IV. Follows with nephrology. - outpt follow-up. - avoid nephrotoxic agents. Anemia Likely s/t underlying renal disease. - follow CBC. - outpt follow-up. CHAPMAN Likely s/t deconditioning. Lungs sound clear. Echo unremarkable. - check a CXR. DVT prophylaxis: SCDs Discharge Planning Awaiting NS clearance Giacomo Emerson DO Feb 28, 2017 11:40
--- NOTE | 2017-02-28 12:55 | RADRPT ---
EXAM DATE/TIME: 02/28/2017 11:52 [facility] COMPARISON: CHEST SINGLE AP, April 29, 2014, 5:04. INDICATIONS : Short of breath. MEDICAL HISTORY : Cardiovascular disease. Hypertension Diabetes mellitus type II. SURGICAL HISTORY : None. ENCOUNTER: Initial ACUITY: 1 day PAIN SCORE: 0/10 LOCATION: Bilateral chest FINDINGS: There are no significant focal oral or parenchymal opacities. Cardiac silhouette is mildly enlarged. The vascularity is within normal limits. Remainder of the exam is unchanged. CONCLUSION: 1. Stable cardiomegaly. 2. No acute cardiopulmonary disease. Jey Galaviz MD on February 28, 2017 at 12:52 Board Certified Radiologist. This report was verified electronically.
[2017-02-28 13:54] LABS: AUTOMATED NEUTROPHIL # 5.6 TH/MM3 (1.8-7.7); BASOPHIL # 0.1 TH/MM3 (0-0.2); BASOPHIL % 0.7 % (0.0-2.0); EOSINOPHIL # 0.1 TH/MM3 (0-0.4); EOSINOPHIL % 1.4 % (0.0-4.0); HEMATOCRIT 29.4 % (35.0-46.0); HEMO FLAGS DIFF FINAL; LYMPH % 17.3 % (9.0-44.0); LYMPHOCYTE # 1.3 TH/MM3 (1.0-4.8); MEAN CELL VOLUME 90.4 FL (80.0-100.0); MEAN CORPUSCULAR HEMOGLOBIN 30.5 PG (27.0-34.0); MEAN CORPUSCULAR HGB CONC 33.8 % (32.0-36.0); MONO % 6.6 % (0.0-8.0); PLATELET COUNT 160 TH/MM3 (150-450); RED BLOOD COUNT 3.25 MIL/MM3 (4.00-5.30); RED CELL DISTRIBUTION WIDTH 12.6 % (11.6-17.2); WHITE BLOOD COUNT 7.6 TH/MM3 (4.0-11.0)
[2017-02-28 13:56] LABS: BICARBONATE 20.4 MEQ/L (21.0-32.0); POTASSIUM 5.4 MEQ/L (3.5-5.1)
--- NOTE | 2017-02-28 14:36 | HHI.NSPN ---
(Mert Arteaga) History Chief Complaint: None when seen (Mert Arteaga) Interval History 02/27: Patient reported that she was having some dizziness for the past 1-1/2 weeks. She states the dizziness is worse whenever she moves her head. She went to her PCP and was given meclizine for this and was not improving. Therefore her daughter decided to bring her to hospital. Patient states she was also losing her balance together with this dizziness. However she states that she usually has loss of balance at baseline and she does not think this is getting worse. She denies any new visual disturbance. She states she does have some visual problems at baseline as well. 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 Denies being on blood thinners at home. Denies any falls or syncopal episodes. Patient reports that her normal blood pressure at home is around 150s to 170s to 180s systolic. However her diastolic is always around 76 or so. She denies any new changes in her blood pressure medications. In the emergency room, patient's further workup revealed possible caudate tiny hemorrhage. Her blood pressures in the ER was as high as 210/84. 02/28: The patient states that she is doing good this afternoon and had no complaints when seen. She was asking when she would be able to go home. Her daughter reported that her mother's dizziness resolved after her blood pressure came down. She did have a CT brain this morning which was unremarkable for any change. (Mert Arteaga) System Review Comments Constitutional: Patient denies any fever or chills. Respiratory: Patient denies any shortness of breath or productive cough. Cardiovascular: Patient denies any chest pain, palpitations or irregular heartbeat. Gastrointestinal: Patient denies any abdominal pain, nausea, vomiting or incontinence of stool. Genitourinary: Patient denies any incontinence of urine. Musculoskeletal: Patient denies any pain or weakness to the extremities. Neurological: Patient denies any headache, dizziness, numbness or tingling. ( Mert Arteaga) Exam Results Vital Signs Date Time Temp Pulse Resp B/P Pulse Ox O2 Delivery O2 Flow Rate FiO2 02/28/17 10:00 71 02/28/17 08:00 98.3 17 152/67 98 02/28/17 01:28 21 02/27/17 03:25 Room Air Intake and Output 02/27/17 02/27/17 02/28/17 08:00 16:00 00:00 Intake Total 297 ml 1006 ml 1099 ml Output Total 350 ml 325 ml Balance 297 ml 656 ml 774 ml (Mert Arteaga) Physical Examination General: Well developed, well nourished female in no apparent distress, affect normal. HEENT: Normocephalic, atraumatic. Respiratory: CTAB w/o W/R/R, equal excursion, non-laboured, on RA. Cardiovascular: S1S2 w/RRR w/o M/G/R, radial & pedal pulses 2+ bilaterally, cap refill < 2 sec. Monitor is sinus rhythm w/o any ectopy noted. Gastrointestinal: Obese, abdomen soft, nontender, positive bowel sounds. Musculoskeletal: [place] w/o difficulty, no evident deformity, discolouration or clubbing. Neurological: AAOx3 Speech clear & appropriate Sensation grossly intact to light touch to all extremities Motor strength 5/5 to all major flexion & extension muscle groups. (Mert Arteaga) Lab, Micro, Other Results Allergies Coded Allergies Type Severity Reaction Last Updated Verified Bee Sting Allergy Severe SOB, EDEMA 02/26/17 Yes Glucophage Allergy Mild 02/26/17 Yes Uncoded Allergies Type Severity Reaction Last Updated Verified HONEY Allergy Severe SOB 12/06/[address] 02/28/17 0600 Signed Impressions: Service Date/Time: Tuesday, February 28, 2017 04:15 - CONCLUSION: Stable hemorrhages within the head of the caudate on the left side. Ru Carpenter MD Chest X-Ray 02/28/17 0000 Signed Impressions: Service Date/Time: Tuesday, February 28, 2017 11:52 - CONCLUSION: 1. Stable cardiomegaly. 2. No acute cardiopulmonary disease. Jey Galaviz MD Head CT 02/27/17 0018 Signed Impressions: Service Date/Time: Monday, February 27, 2017 00:44 - CONCLUSION: Two small areas of hemorrhage within the left head of the caudate not present previously without any significant mass effect. Ru Carpenter MD Carotid Artery Ultrasound 02/27/17 0000 Signed Impressions: Service Date/Time: Monday, February 27, 2017 08:33 - CONCLUSION: Mild bilateral carotid plaques. No evidence of hemodynamically significant stenosis. Antegrade flow in both vertebral arteries. Fernando Bell MD / 06:00 18:00 06:00 18:00 06:00 18:00 Intake Total 297 ml 1006 ml 1390 ml Output Total 350 ml 325 ml Balance 297 ml 656 ml 1065 ml Intake Oral 100 ml 420 ml 720 ml IV Total 197 ml 586 ml 670 ml Output Urine Total 350 ml 325 ml # Voids 0 2 # Bowel Movements 0 0 0 Laboratory Tests Test 02/27/17 02/27/17 02/27/17 02/27/17 00:25 01:05 01:36 03:50 White Blood Count 8.2 TH/MM3 Red Blood Count 3.54 MIL/MM3 Hemoglobin 10.7 GM/DL Hematocrit 32.6 % Mean Corpuscular Volume 91.9 FL Mean Corpuscular Hemoglobin 30.3 PG Mean Corpuscular Hemoglobin 33.0 % Concent Red Cell Distribution Width 12.9 % Platelet Count 182 TH/MM3 Mean Platelet Volume 9.0 FL Neutrophils (%) (Auto) 62.8 % Lymphocytes (%) (Auto) 27.0 % Monocytes (%) (Auto) 8.0 % Eosinophils (%) (Auto) 1.1 % Basophils (%) (Auto) 1.1 % Neutrophils # (Auto) 5.2 TH/MM3 Lymphocytes # (Auto) 2.2 TH/MM3 Monocytes # (Auto) 0.7 TH/MM3 Eosinophils # (Auto) 0.1 TH/MM3 Basophils # (Auto) 0.1 TH/MM3 CBC Comment DIFF FINAL Differential Comment Sodium Level 145 MEQ/L Potassium Level 4.5 MEQ/L Chloride Level 111 MEQ/L Carbon Dioxide Level 24.3 MEQ/L Anion Gap 10 MEQ/L Blood Urea Nitrogen 49 MG/DL Creatinine 3.02 MG/DL Estimat Glomerular Filtration 16 ML/MIN Rate Random Glucose 68 MG/DL Calcium Level 8.8 MG/DL Magnesium Level 1.7 MG/DL Urine Color YELLOW Urine Turbidity CLEAR Urine pH 6.0 Urine Specific [place] 1.011 Urine Protein 300 mg/dL Urine Glucose (UA) TRACE mg/dL Urine Ketones NEG mg/dL Urine Occult Blood TRACE Urine Nitrite NEG Urine Bilirubin NEG Urine Urobilinogen LESS THAN 2.0 MG/DL Urine Leukocyte Esterase TRACE Urine RBC 2 /hpf Urine WBC 9 /hpf Urine Squamous Epithelial 2 /hpf Cells Urine Renal Epithelial Cells <1 /hpf Urine Bacteria RARE /hpf Urine Hyaline Casts 1 /lpf Urine Mucus FEW /lpf Microscopic Urinalysis Comment Prothrombin Time 10.2 SEC Prothromb Time International 0.9 RATIO Ratio Activated Partial 27.5 SEC Thromboplast Time Nasal Screen MRSA (PCR) MRSA NOT DETECTED Test 02/28/17 12:44 White Blood Count 7.6 TH/MM3 Red Blood Count 3.25 MIL/MM3 Hemoglobin 9.9 GM/DL Hematocrit 29.4 % Mean Corpuscular Volume 90.4 FL Mean Corpuscular Hemoglobin 30.5 PG Mean Corpuscular Hemoglobin 33.8 % Concent Red Cell Distribution Width 12.6 % Platelet Count 160 TH/MM3 Mean Platelet Volume 9.0 FL Neutrophils (%) (Auto) 74.0 % Lymphocytes (%) (Auto) 17.3 % Monocytes (%) (Auto) 6.6 % Eosinophils (%) (Auto) 1.4 % Basophils (%) (Auto) 0.7 % Neutrophils # (Auto) 5.6 TH/MM3 Lymphocytes # (Auto) 1.3 TH/MM3 Monocytes # (Auto) 0.5 TH/MM3 Eosinophils # (Auto) 0.1 TH/MM3 Basophils # (Auto) 0.1 TH/MM3 CBC Comment DIFF FINAL Differential Comment Sodium Level 139 MEQ/L Potassium Level 5.4 MEQ/L Chloride Level 110 MEQ/L Carbon Dioxide Level 20.4 MEQ/L Anion Gap 9 MEQ/L Blood Urea Nitrogen 45 MG/DL Creatinine 3.15 MG/DL Estimat Glomerular Filtration 15 ML/MIN Rate Random Glucose 204 MG/DL Calcium Level 8.6 MG/DL Vital Signs Date Time Temp Pulse Resp B/P Pulse Ox O2 Delivery O2 Flow Rate FiO2 02/28/17 10:00 71 02/28/17 08:00 98.3 73 17 152/67 98 02/28/17 08:00 73 02/28/17 06:00 65 02/28/17 04:00 98.2 68 12 116/54 99 02/28/17 04:00 68 02/28/17 02:00 76 02/28/17 01:28 99 21 02/28/17 00:00 67 02/28/17 00:00 97.7 67 14 139/60 96 02/27/17 22:00 71 02/27/17 20:00 76 02/27/17 20:00 98.1 76 24 152/68 100 02/27/17 18:00 78 02/27/17 16:00 70 02/27/17 16:00 97.9 70 25 141/64 100 02/27/17 14:00 72 02/27/17 12:00 98.0 68 15 140/61 100 02/27/17 12:00 80 02/27/17 10:00 66 02/27/17 08:00 97.8 68 13 127/61 98 02/27/17 08:00 75 02/27/17 06:00 73 02/27/17 04:00 72 02/27/17 04:00 98.1 77 25 128/80 98 02/27/17 03:25 75 18 154/67 96 Room Air 02/27/17 02:29 77 18 166/78 99 Room Air 02/27/17 01:50 76 18 169/69 96 Room Air 02/27/17 01:27 79 18 188/78 96 Room Air 02/27/17 00:33 94 02/26/17 23:32 207/87 02/26/17 23:12 98.3 84 16 210/84 97 Room Air (Mert Arteaga) Medical Decision Making Impression and Plan Impression: 1. Two small probable subacute left caudate ICH. 2. HTN CT brain demonstrated stable haemorrhages left side caudate Stable neurological status Hyperkalemia Plan: No indiction for NSGY intervention HTN control for SBP 120 - 150 range Primary mgmt per [place] (Mert Arteaga) Attending Statement I have personally seen and examined the patient on the date of this note. Pertinent documentation and study results have been reviewed by the undersigned. I have personally developed the treatment plan and performed medical decision making. Agree with findings, exam, and treatment plan as noted above. 02/28/17 CT scan head images reviewed by the undersigned. Small stable left basal ganglia lesions. Calcification versus new hemorrhage. Stable for discharge from neurosurgery standpoint. I discussed importance of close monitoring and adequate control of hypertension with the patient and family. No routine follow-up CT scan head necessary from neurosurgery standpoint (Delvis Mckeon MD) Mert Arteaga Feb 28, 2017 14:36 Delvis Mckeon MD Feb 28, 2017 23:15
[2017-02-28] MEDS ORDERED: SODIUM POLYSTYRENE SULFONATE SUSP 15 GM/60 ML CUP PO ONE (17:00)
[2017-02-28] MEDS: hydrALAZINE HCL 25 MG TAB PO SCH ×2 (17:16→22:42)
[2017-02-28 22:42] LABS: HEMOGLOBIN A1a 1.5 %; HEMOGLOBIN A1b 2.2 %; HEMOGLOBIN Ao 81.4 %; HEMOGLOBIN P3 4.9 %
[2017-02-28] MEDS: niCARdipine INJ 25 MG in SODIUM CHLOR 0.9% 250 ML INJ 250 ML IV SCH (22:42)
[2017-03-01] VITALS (8 sets, daily range): BP systolic 121–155; BP diastolic 60–67; PULSE 68–74; RESP 11–17; TEMP 98.1–98.7; O2SAT 96–100
[2017-03-01] MEDS: CHLORHEXIDINE GLUCONATE 2 % 1 PACK (2 CLOTHS)(taper/protocol) TOPICAL SCH (04:00)
[2017-03-01 05:00] LABS: HEMATOCRIT 30.8 % (35.0-46.0); MEAN CORPUSCULAR HEMOGLOBIN 31.1 PG (27.0-34.0); MEAN CORPUSCULAR HGB CONC 34.5 % (32.0-36.0); PLATELET COUNT 168 TH/MM3 (150-450); RED BLOOD COUNT 3.43 MIL/MM3 (4.00-5.30); RED CELL DISTRIBUTION WIDTH 12.9 % (11.6-17.2); REVIEW FLAG FINAL; WHITE BLOOD COUNT 7.3 TH/MM3 (4.0-11.0)
[2017-03-01 05:29] LABS: BICARBONATE 22.4 MEQ/L (21.0-32.0); MAGNESIUM 1.7 MG/DL (1.5-2.5)
[2017-03-01] MEDS: hydrALAZINE HCL 25 MG TAB PO SCH ×2 (06:00→14:13)
[2017-03-01] MEDS: INSULIN ASPART SUPPLEMENTAL SCALE SQ SCH ×3 (06:51→16:00)
[2017-03-01] MEDS: FERROUS SULFATE 300 MG /5ML UDC PO SCH (08:28)
[2017-03-01] MEDS: DULoxetine HCl DR 20 MG CAP PO SCH (08:28)
[2017-03-01] MEDS: CHOLECALCIFEROL (VIT D3) 5000 UNIT CAP PO SCH (08:28)
[2017-03-01] MEDS: SODIUM BICARBONATE 650 MG TAB PO SCH (08:29)
[2017-03-01] MEDS: SODIUM CHLORIDE 0.9% FLUSH 10 ML FLUSH IV FLUSH SCH (08:31)
[2017-03-01] MEDS: VITAMIN B COMPLEX/VIT C TAB PO SCH (08:34)
[2017-03-01] MEDS ORDERED: AMLO10 PO (09:50)
--- NOTE | 2017-03-01 09:51 | HHI.DCPOC ---
Discharge Care Plan Diagnosis: (1) ICH (intracerebral hemorrhage) (2) Dizziness (3) Anemia (4) Diabetes (5) CKD (chronic kidney disease), stage IV Goals to Promote Your Health * To prevent worsening of your condition and complications * To maintain your health at the optimal level Directions to Meet Your Goals Take your medications as prescribed Follow your dietary instruction Follow activity as directed Keep your appointments as scheduled Take your immunizations and boosters as scheduled If your symptoms worsen call your PCP, if no PCP go to Urgent Care Center or Emergency Room Smoking is Dangerous to Your Health. Avoid second hand smoke Call the 24-hour hour crisis hotline for domestic abuse at Giacomo Emerson DO Mar 01, 2017 09:51
--- NOTE | 2017-03-01 09:59 | HHI.DS ---
Discharge Summary Admission Date Feb 27, 2017 at 02:43 Discharge Date: Mar 01, 2017 Admitting Diagnosis ICH, Vertigo (1) CKD (chronic kidney disease), stage IV ICD Code: N18.4 (2) ICH (intracerebral hemorrhage) ICD Code: I61.9 Diagnosis: Principal (3) Diabetes ICD Code: E11.9 (4) Anemia ICD Code: D64.9 (5) Dizziness ICD Code: R42 Procedures None Brief History - From Admission History from patient, ER provider communication, and review of medical records. Patient reported that she was having some dizziness for the past 1-1/2 weeks. She states the dizziness is worse whenever she moves her head. She went to her PCP and was given meclizine for this and was not improving. Therefore her daughter decided to bring her to hospital. Patient states she was also losing her balance together with this dizziness. However she states that she usually has loss of balance at baseline and she does not think this is getting worse. She denies any new visual disturbance. She states she does have some visual problems at baseline as well. Denies any ringing in her ears. Denies pain in her years. Denies fever. Denies any new numbness or tingling or weakness elsewhere. 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 Denies being on blood thinners at home. Denies any falls or syncopal episodes. Patient reports that her normal blood pressure at home is around 150s to 170s to 180s systolic. However her diastolic is always around 76 or so. She denies any new changes in her blood pressure medications. In the emergency room, patient's further workup revealed possible caudate tiny hemorrhage. Her blood pressures in the ER was as high as 210/84. Apart from the above, patient denies any nausea/vomiting/diarrhea/urinary burning or pain on urination. Denies any hematemesis/hematochezia/melena/hematuria. Denies any chest pain/palpitations/shortness of breath CBC/BMP: 03/01/17 0416 03/01/17 0416 Significant Findings Laboratory Tests Test 02/27/17 02/27/17 02/28/17 03/01/17 00:25 01:05 12:44 04:16 Red Blood Count 3.54 MIL/MM3 3.25 MIL/MM3 3.43 MIL/MM3 (4.00-5.30) (4.00-5.30) (4.00-5.30) Hemoglobin 10.7 GM/DL 9.9 GM/DL 10.6 GM/DL (11.6-15.3) (11.6-15.3) (11.6-15.3) Hematocrit 32.6 % 29.4 % 30.8 % (35.0-46.0) (35.0-46.0) (35.0-46.0) Chloride Level 111 MEQ/L 110 MEQ/L 111 MEQ/L (98-107) (98-107) (98-107) Blood Urea Nitrogen 49 MG/DL (7-18) 45 MG/DL (7-18) 46 MG/DL (7-18) Creatinine 3.02 MG/DL 3.15 MG/DL 2.92 MG/DL (0.50-1.00) (0.50-1.00) (0.50-1.00) Estimat Glomerular Filtration 16 ML/MIN (>89) 15 ML/MIN (>89) 16 ML/MIN (>89) Rate Random Glucose 68 MG/DL 204 MG/DL 190 MG/DL (74-106) (74-106) (74-106) Urine Protein 300 mg/dL (NEG-TRACE) Urine Occult Blood TRACE (NEG) Urine Leukocyte Esterase TRACE (NEG) Urine WBC 9 /hpf (0-5) Urine Bacteria RARE /hpf (NONE) Urine Mucus FEW /lpf (OCC) Neutrophils (%) (Auto) 74.0 % (16.0-70.0) Potassium Level 5.4 MEQ/L (3.5-5.1) Carbon Dioxide Level 20.4 MEQ/L (21.0-32.0) Hemoglobin A1c 6.8 % (4.3-6.0) Imaging Last Impressions Head CT 02/28/17 0600 Signed Impressions: Service Date/Time: Tuesday, February 28, 2017 04:15 - CONCLUSION: Stable hemorrhages within the head of the caudate on the left side. Ru Carpenter MD Chest X-Ray 02/28/17 0000 Signed Impressions: Service Date/Time: Tuesday, February 28, 2017 11:52 - CONCLUSION: 1. Stable cardiomegaly. 2. No acute cardiopulmonary disease. Jey Galaviz MD Carotid Artery Ultrasound 02/27/17 0000 Signed Impressions: Service Date/Time: Monday, February 27, 2017 08:33 - CONCLUSION: Mild bilateral carotid plaques. No evidence of hemodynamically significant stenosis. Antegrade flow in both vertebral arteries. Fernando Bell MD PE at Discharge GENERAL: This is a well-nourished, well-developed patient, in no apparent distress. SKIN: No rashes, ecchymoses or lesions. Cool and dry. HEAD: Atraumatic. Normocephalic. No temporal or scalp tenderness. EYES: No scleral icterus. No injection or drainage. ENT: Nose without bleeding, purulent drainage or septal hematoma. Airway patent. NECK: Trachea midline. No JVD. Supple, nontender, no meningeal signs. CARDIOVASCULAR: Regular rate and rhythm without murmurs, gallops, or rubs. RESPIRATORY: Clear to auscultation. Breath sounds equal bilaterally. No wheezes , rales, or rhonchi. GASTROINTESTINAL: Abdomen soft, non-tender, nondistended. No guarding. MUSCULOSKELETAL: Extremities without clubbing, cyanosis, or edema. NEUROLOGICAL: Awake and alert.Motor and sensory grossly within normal limits Normal speech. Mild right-sided weakness about 4 out of 5. PSYCH: Mood and affect appropriate. Pt update on day of discharge The pt was resting comfortably in bed. She had no acute complaints. She has not had a bowel movement. She said she will buy a blood pressure cuff. She says she has been worked up for sleep apnea in the past. She denies headache or dizziness. Has been ambulating well. Discussed with nursing. Hospital Course Caudate hemorrhages/ Hypertensive emergency The pt presented with severe dizziness. She was found to have caudate hemorrhages on CT scan. Her blood pressure was 210/84 in the ED. Neurosurgery was consulted. No surgical intervention was recommended. Repeat head CT 02/28 was stable. Echo and carotid US unremarkable. Blood pressure control was achieved with a Cardene gtt. We started amlodipine and increased the dose to 10 mg daily. Hydralazine 25 mg TID was also added. She worked with PT/ OT. She was cleared for discharge by neurosurgery and will follow up with them as an outpt. CKD Stage IV. Follows with nephrology as an outpt. Lisinopril was discontinued s/t hyperkalemia. She will have a BMP checked in 3-5 days. BARAK The pt was noted to desaturate into the 70s while sleeping and returned to normal sats when woken. CXR was unremarkable. The pt will follow up with pulmonology as an outpt. A sleep study is recommended. Pt Condition on Discharge: Stable Discharge Disposition: Discharge Home Discharge Time: > 30 minutes Discharge Instructions DIET: Follow Instructions for: Diabetic Diet Activities you can perform: Weight Bearing as [place] Follow up Referrals: Neurosurgery - 2 Weeks with Delvis Mckeon MD PCP Follow-up - 1 Week Pulmonology - 1 Week New Orders: BASIC METABOLIC PROF - 3-5 Days New Medications: Hydralazine HCl (Hydralazine HCl) 25 Mg Tablet 25 MG PO TID PRN SBP > 170 DBP >100 #30 Ref 0 TAB Amlodipine (Norvasc) 10 Mg Tab 10 MG PO DAILY Blood Pressure Management #30 TAB Labetalol (Labetalol) 100 Mg Tab 100 MG PO Q12HR Blood Pressure Management #60 TAB Continued Medications: Atorvastatin (Atorvastatin) 40 Mg Tab 40 MG PO HS Cholesterol Management #30 Ref 0 TAB B-Complex Vitamins (B Complex) 1 Cap 1 CAP PO DAILY Nutritional Supplement #30 Ref 0 CAP Cholecalciferol (D3 Maximum Strength) 5,000 Unit Cap 5000 UNITS PO DAILY Nutritional Supplement #30 Ref [address] (Dul[address]etine DR) 20 Mg Capdr 20 MG PO DAILY #30 Ref 0 CAP Ferrous Sulfate (Feosol) 200 Mg Tab 27 MG PO DAILY Nutritional Supplement #60 Ref 0 TAB Furosemide (Furosemide) 20 Mg Tab 20 MG PO DAILY #30 Ref 0 TAB Insulin Aspart Inj (Novolog Inj) 1,000 Unit/10 Ml Vial 40 UNITS SQ TID Blood Sugar Management #10 Ref 0 ML Sodium Bicarbonate (Sodium Bicarbonate) 650 Mg Tab 650 MG PO BIDPC #60 Ref 0 TAB Discontinued Medications: Lisinopril (Lisinopril) 20 Mg Tab 20 MG PO DAILY #30 Ref 0 TAB Meclizine (Meclizine) 25 Mg Tab 25 MG PO BID PRN VERTIGO Ref 0 TAB Sayess,Curt. DO Mar 01, 2017 09:59
[2017-03-01] MEDS ORDERED: LABETALOL HCL 100 MG/20 ML VIAL IV PUSH PRN (10:30)
[2017-03-01] MEDS: SENNOSIDES 8.6 MG TAB PO SCH ×2 (11:30→11:53)
[2017-03-01] MEDS: DOCUSATE SODIUM 100 MG CAP PO SCH ×2 (11:30→11:53)
[2017-03-01] MEDS ORDERED: LABETALOL HCL 100 MG TAB PO SCH (12:00)
--- NOTE | 2017-03-01 12:12 | HHI.NSPN ---
(Mert Arteaga) History Chief Complaint: Blood pressure is up some (Mert Arteaga) Interval History 02/27: Patient reported that she was having some dizziness for the past 1-1/2 weeks. She states the dizziness is worse whenever she moves her head. She went to her PCP and was given meclizine for this and was not improving. Therefore her daughter decided to bring her to hospital. Patient states she was also losing her balance together with this dizziness. However she states that she usually has loss of balance at baseline and she does not think this is getting worse. She denies any new visual disturbance. She states she does have some visual problems at baseline as well. 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 Denies being on blood thinners at home. Denies any falls or syncopal episodes. Patient reports that her normal blood pressure at home is around 150s to 170s to 180s systolic. However her diastolic is always around 76 or so. She denies any new changes in her blood pressure medications. In the emergency room, patient's further workup revealed possible caudate tiny hemorrhage. Her blood pressures in the ER was as high as 210/84. 02/28: The patient states that she is doing good this afternoon and had no complaints when seen. She was asking when she would be able to go home. Her daughter reported that her mother's dizziness resolved after her blood pressure came down. She did have a CT brain this morning which was unremarkable for any change. 03/01: The patient was initially seen this morning with Dr Mckeon and had no complaints. She stated that she was going to be discharged today. When seen shortly after noon the patient stated she is still doing well but her blood pressure was up, therefore her discharge is on hold and her blood pressure is being monitored. If it improves she states that the plan is still to discharge her home. (Mert Arteaga) System Review Comments Constitutional: Patient denies any fever or chills. Respiratory: Patient denies any shortness of breath or productive cough. Cardiovascular: Patient reports that her blood pressure is up but denies any chest pain, palpitations or irregular heartbeat. Gastrointestinal: Patient denies any abdominal pain, nausea, vomiting or incontinence of stool. Genitourinary: Patient denies any incontinence of urine. Musculoskeletal: Patient denies any pain or weakness to the extremities. Neurological: Patient denies any headache, dizziness, numbness or tingling. ( Mert Arteaga) Exam Results Vital Signs Date Time Temp Pulse Resp B/P Pulse Ox O2 Delivery O2 Flow Rate FiO2 03/01/17 09:04 100 03/01/17 04:00 98.1 70 14 128/60 02/28/17 19:41 21 02/27/17 03:25 Room Air Intake and Output 02/28/17 02/28/17 03/01/17 08:00 16:00 00:00 Intake Total 291 ml 300 ml 592 ml Balance 291 ml 300 ml 592 ml (Mert Arteaga) Physical Examination General: No apparent distress, affect normal. HEENT: Normocephalic, atraumatic. Respiratory: CTAB w/o W/R/R, equal excursion, non-laboured, on RA. Cardiovascular: S1S2 w/RRR w/o M/G/R, radial & pedal pulses 2+ bilaterally, cap refill < 2 sec. Monitor is sinus rhythm w/o any ectopy noted. Gastrointestinal: Obese, abdomen soft, nontender, positive bowel sounds. Musculoskeletal: [place] w/o difficulty, no evident deformity, discolouration or clubbing. Neurological: AAOx3 Speech clear & appropriate Sensation grossly intact to light touch to all extremities Motor strength 5/5 to all major flexion & extension muscle groups. (Mert Arteaga) Lab, Micro, Other Results Allergies Coded Allergies Type Severity Reaction Last Updated Verified Bee Sting Allergy Severe SOB, EDEMA 02/26/17 Yes Glucophage Allergy Mild 02/26/17 Yes Uncoded Allergies Type Severity Reaction Last Updated Verified HONEY Allergy Severe SOB 12/06/[address] 02/28/17 0600 Signed Impressions: Service Date/Time: Sunday, February 28, 2017 04:15 - CONCLUSION: Stable hemorrhages within the head of the caudate on the left side. Ru Carpenter MD Chest X-Ray 02/28/17 0000 Signed Impressions: Service Date/Time: Tuesday, February 28, 2017 11:52 - CONCLUSION: 1. Stable cardiomegaly. 2. No acute cardiopulmonary disease. Jey Galaviz MD Head CT 02/27/17 0018 Signed Impressions: Service Date/Time: Monday, February 27, 2017 00:44 - CONCLUSION: Two small areas of hemorrhage within the left head of the caudate not present previously without any significant mass effect. Ru Carpenter MD Carotid Artery Ultrasound 02/27/17 0000 Signed Impressions: Service Date/Time: Monday, February 27, 2017 08:33 - CONCLUSION: Mild bilateral carotid plaques. No evidence of hemodynamically significant stenosis. Antegrade flow in both vertebral arteries. Fernando Bell MD //// 06:00 18:00 06:00 18:00 06:00 18:00 Intake Total 297 ml 1006 ml 1390 ml 300 ml 832 ml Output Total 350 ml 325 ml Balance 297 ml 656 ml 1065 ml 300 ml 832 ml Intake Oral 100 ml 420 ml 720 ml 300 ml 480 ml IV Total 197 ml 586 ml 670 ml 352 ml Output Urine Total 350 ml 325 ml # Voids 0 2 2 4 # Bowel Movements 0 0 0 0 0 Laboratory Tests Test 02/27/17 02/27/17 02/27/17 02/27/17 00:25 01:05 01:36 03:50 White Blood Count 8.2 TH/MM3 Red Blood Count 3.54 MIL/MM3 Hemoglobin 10.7 GM/DL Hematocrit 32.6 % Mean Corpuscular Volume 91.9 FL Mean Corpuscular Hemoglobin 30.3 PG Mean Corpuscular Hemoglobin 33.0 % Concent Red Cell Distribution Width 12.9 % Platelet Count 182 TH/MM3 Mean Platelet Volume 9.0 FL Neutrophils (%) (Auto) 62.8 % Lymphocytes (%) (Auto) 27.0 % Monocytes (%) (Auto) 8.0 % Eosinophils (%) (Auto) 1.1 % Basophils (%) (Auto) 1.1 % Neutrophils # (Auto) 5.2 TH/MM3 Lymphocytes # (Auto) 2.2 TH/MM3 Monocytes # (Auto) 0.7 TH/MM3 Eosinophils # (Auto) 0.1 TH/MM3 Basophils # (Auto) 0.1 TH/MM3 CBC Comment DIFF FINAL Differential Comment Sodium Level 145 MEQ/L Potassium Level 4.5 MEQ/L Chloride Level 111 MEQ/L Carbon Dioxide Level 24.3 MEQ/L Anion Gap 10 MEQ/L Blood Urea Nitrogen 49 MG/DL Creatinine 3.02 MG/DL Estimat Glomerular Filtration 16 ML/MIN Rate Random Glucose 68 MG/DL Calcium Level 8.8 MG/DL Magnesium Level 1.7 MG/DL Urine Color YELLOW Urine Turbidity CLEAR Urine pH 6.0 Urine Specific Stephens 1.011 Urine Protein 300 mg/dL Urine Glucose (UA) TRACE mg/dL Urine Ketones NEG mg/dL Urine Occult Blood TRACE Urine Nitrite NEG Urine Bilirubin NEG Urine Urobilinogen LESS THAN 2.0 MG/DL Urine Leukocyte Esterase TRACE Urine RBC 2 /hpf Urine WBC 9 /hpf Urine Squamous Epithelial 2 /hpf Cells Urine Renal Epithelial Cells <1 /hpf Urine Bacteria RARE /hpf Urine Hyaline Casts 1 /lpf Urine Mucus FEW /lpf Microscopic Urinalysis Comment Prothrombin Time 10.2 SEC Prothromb Time International 0.9 RATIO Ratio Activated Partial 27.5 SEC Thromboplast Time Nasal Screen MRSA (PCR) MRSA NOT DETECTED Test 02/28/17 03/01/17 12:44 04:16 White Blood Count 7.6 TH/MM3 7.3 TH/MM3 Red Blood Count 3.25 MIL/MM3 3.43 MIL/MM3 Hemoglobin 9.9 GM/DL 10.6 GM/DL Hematocrit 29.4 % 30.8 % Mean Corpuscular Volume 90.4 FL 90.0 FL Mean Corpuscular Hemoglobin 30.5 PG 31.1 PG Mean Corpuscular Hemoglobin 33.8 % 34.5 % Concent Red Cell Distribution Width 12.6 % 12.9 % Platelet Count 160 TH/MM3 168 TH/MM3 Mean Platelet Volume 9.0 FL 9.0 FL Neutrophils (%) (Auto) 74.0 % Lymphocytes (%) (Auto) 17.3 % Monocytes (%) (Auto) 6.6 % Eosinophils (%) (Auto) 1.4 % Basophils (%) (Auto) 0.7 % Neutrophils # (Auto) 5.6 TH/MM3 Lymphocytes # (Auto) 1.3 TH/MM3 Monocytes # (Auto) 0.5 TH/MM3 Eosinophils # (Auto) 0.1 TH/MM3 Basophils # (Auto) 0.1 TH/MM3 CBC Comment DIFF FINAL Differential Comment Sodium Level 139 MEQ/L 141 MEQ/L Potassium Level 5.4 MEQ/L 5.0 MEQ/L Chloride Level 110 MEQ/L 111 MEQ/L Carbon Dioxide Level 20.4 MEQ/L 22.4 MEQ/L Anion Gap 9 MEQ/L 8 MEQ/L Blood Urea Nitrogen 45 MG/DL 46 MG/DL Creatinine 3.15 MG/DL 2.92 MG/DL Estimat Glomerular Filtration 15 ML/MIN 16 ML/MIN Rate Random Glucose 204 MG/DL 190 MG/DL Hemoglobin A1c 6.8 % Calcium Level 8.6 MG/DL 8.7 MG/DL Magnesium Level 1.7 MG/DL Vital Signs Date Time Temp Pulse Resp B/P Pulse Ox O2 Delivery O2 Flow Rate FiO2 03/01/17 09:04 100 03/01/17 04:00 98.1 70 14 128/60 99 03/01/17 00:00 98.4 73 15 132/67 98 02/28/17 20:00 98.2 74 19 141/65 96 02/28/17 19:41 21 02/28/17 18:00 76 02/28/17 16:00 91 02/28/17 16:00 98.3 91 19 162/70 95 02/28/17 14:00 76 02/28/17 12:00 72 02/28/17 12:00 97.9 72 20 150/67 98 02/28/17 10:00 71 02/28/17 08:00 98.3 73 17 152/67 98 02/28/17 08:00 73 02/28/17 06:00 65 02/28/17 04:00 98.2 68 12 116/54 99 02/28/17 04:00 68 02/28/17 02:00 76 02/28/17 01:28 99 21 02/28/17 00:00 67 02/28/17 00:00 97.7 67 14 139/60 96 02/27/17 22:00 71 02/27/17 20:00 76 02/27/17 20:00 98.1 76 24 152/68 100 02/27/17 18:00 78 02/27/17 16:00 70 02/27/17 16:00 97.9 70 25 141/64 100 02/27/17 14:00 72 02/27/17 12:00 98.0 68 15 140/61 100 02/27/17 12:00 80 02/27/17 10:00 66 02/27/17 08:00 97.8 68 13 127/61 98 02/27/17 08:00 75 02/27/17 06:00 73 02/27/17 04:00 72 02/27/17 04:00 98.1 77 25 128/80 98 02/27/17 03:25 75 18 154/67 96 Room Air 02/27/17 02:29 77 18 166/78 99 Room Air 02/27/17 01:50 76 18 169/69 96 Room Air 02/27/17 01:27 79 18 188/78 96 Room Air 02/27/17 00:33 94 02/26/17 23:32 207/87 02/26/17 23:12 98.3 84 16 210/84 97 Room Air (Mert Arteaga) Medical Decision Making Impression and Plan Impression: 1. Two small probable subacute left caudate ICH. 2. HTN CT brain demonstrated stable haemorrhages left side caudate Stable neurological status Hyperkalemia, resolved Plan: No indiction for NSGY intervention HTN control for SBP 120 - 150 range Primary mgmt per Summer Counselor From NSGY's perspective the patient is able to be transferred to a regular med/ surg floor or if applicable, to be discharged home There is no need to follow up with NSGY (Mert Arteaga) Attending Statement In my attestation. Other than her long-standing visual deficits, neurologic exam remains stable and within normal limits. Discussed with the patient. She may discharge home from a neurosurgery standpoint. Signs and symptoms to watch for have been explained. The importance of proper blood pressure control has been discussed. (Delvis Mckeon MD) Mert Arteaga Mar 01, 2017 12:12 Delvis Mckeon MD Mar 01, 2017 13:38
[2017-03-01] MEDS ORDERED: LABE100T2 PO (16:59)
[2017-03-01] MEDS ORDERED: HYDR-3799 PO (17:02)
== END 2017-03-01 17:49 | disposition home or self-care (01) | DRG 65 ==
LOC: NEPE 23:10 → NEDA 02-27 02:43 → N03B 02-27 03:40
PROVIDERS: ADMIT Hospitalist; ATTEND Hospitalist
DX: I61.9 Nontraumatic intracerebral hemorrhage, unspecified (principal); I16.1 Hypertensive emergency; N18.4 Chronic kidney disease, stage 4 (severe); E11.22 Type 2 diabetes mellitus with diabetic chronic kidney disease; I69.351 Hemiplegia and hemiparesis following cerebral infarction affecting right dominant side; Z68.41 Body mass index [BMI] 40.0-44.9, adult; E11.9 Type 2 diabetes mellitus without complications; D63.1 Anemia in chronic kidney disease; I10 Essential (primary) hypertension; I12.9 Hypertensive chronic kidney disease with stage 1 through stage 4 chronic kidney disease, or unspecified chronic kidney disease; M79.7 Fibromyalgia; G35 Multiple sclerosis; G62.9 Polyneuropathy, unspecified; E66.9 Obesity, unspecified; E87.5 Hyperkalemia; G47.33 Obstructive sleep apnea (adult) (pediatric); Z79.4 Long term (current) use of insulin; Z91.030 Bee allergy status
CPT/HCPCS: 70450; 71010; 80048; 81001; 82948; 83036; 83735; 85025; 85027; 85610; 85730; 87641; 90732; 93005; 93306; 93880; 96374; 96375; J0696; J1815; J2060; J2405; J7050